=== PATIENT | male | born 1980 | race African-American/Black ===

== ENCOUNTER 2025-08-27 18:55 | Emergency (ER) | payer OTHER, SELFPAY ==
[2025-08-27 19:11] VITALS: BP 140/83; PULSE 80; RESP 20; TEMP 36.5; O2SAT 100
--- NOTE | 2025-08-27 19:31 | ED.EYEPROB ---
HPI - Eye Problem General Chief complaint: Skin/Abscess/Foreign Body Stated complaint: Chemical Burn to Face Time Seen by Provider: 08/27/25 18:57 Source: patient Mode of arrival: ambulatory Limitations: no limitations History of Present Illness HPI Narrative: Patient is a 45-year-old male who presents with left eye irritation and burning. Patient states he was eating red hot red ripplets when he rubbed his eye around 11. Patient got off work at 4:30 a.m. when he arrived home called his boss about the irritation. Patient states there was recently a chemical exposure at work. Patient states he showered but symptoms are still there. Related Data Allergies Allergy/AdvReac Type Severity Reaction Status Date / Time No Known Allergies Allergy Verified 08/27/25 19:40 Review of Systems Review of Systems: All systems reviewed & are unremarkable except as noted in HPI and below Constitutional: Constitutional: Denies body ache(s), Denies fever(s), Denies headache(s), Denies malaise and Denies weakness Eyes: Eyes: Reports blurry vision, Denies eye discharge, Reports irritation, Denies itchy eyes, Denies loss of vision and Denies eye pain ENT: Denies otalgia, Denies headache(s), Denies nasal discharge, Denies sinus pain and Denies sore throat Cardiovascular: Cardiovascular: Denies chest pain, Denies irregular heart rhythm and Denies dyspnea Respiratory: Respiratory: Denies dyspnea Gastrointestinal: Gastrointestinal: Denies abdominal pain, Denies diarrhea, Denies nausea and Denies vomiting Musculoskeletal: Musculoskeletal: Denies back pain, Denies myalgias and Denies arthralgias Integumentary/Breasts: Skin/Breast: Denies pruritus and Denies rash Neurologic: Denies headache(s), Denies loss of vision and Denies weakness Psychiatric: Psychiatric: Reports no additional psychiatric complaints Allergic/Immunologic: Allergic/Immunologic: Reports itchy eyes PMFSH Comments At time of signature, agree with nursing past medical, surgical, social and family history. There is no relevant family history pertinent to the presenting complaint. Exam Const: General: cooperative, healthy appearing, comfortable, no acute distress and well nourished Nutritional Appearance: well nourished Orientation/consciousness: patient oriented x3 Limitations: no limitations HENMT: Head: normal to inspection, normocephalic and atraumatic Ears: external ears normal Face/Nose/Sinus: Normal external nose present, normal facial exam and face symmetric Face and sinus: normal facial exam and face symmetric Mouth: Yes lip normal Eyes: General: appearance normal, both eyes and all related structures Visual Paige: normal visual paige by confrontation Alignment and Position: alignment normal and position normal Periorbital: periorbital findings normal Eyelids: eyelids normal Conjunctivae: conjunctivae normal Sclera: sclerae normal Pupils: Equal, round and reactive pupils present EOM: EOMs intact bilaterally Direct Ophthalmoscopy: no photophobia Other: No hyphema, no foreign body under the lids. Neck: Neck: normal visual inspection, full ROM, no lymphadenopathy and no meningeal signs Chest: Chest palpation & inspection: normal inspection of the chest Resp: Effort & Inspection: normal respiratory effort and able to speak in complete sentences Auscultation: clear to auscultation bilaterally Cardio: Rate: regular rate Rhythm: regular rhythm Heart sounds: S1 normal heart sound present and S2 normal heart sound present GI: Inspection: normal to inspection Skin: General skin exam: normal color and no rashes or lesions noted Neuro: General: patient oriented x3, moves all extremities and no meningeal signs Cranial nerves: Yes Equal, round and reactive pupils present Speech: normal speech Gait exam (Neuro): Normal gait present Extrem: General: normal to inspection, full ROM and no edema Psych: Appearance: grossly normal and well kempt Mental Status: mental status grossly normal Speech and movement: Normal speech and movement present Affect: normal affect Attitude: cooperative Thought process: Normal thought process present Course Course Emergency Course: Patient is aware of diagnosis, understands and agrees to treatment plan. Anticipatory guidance given. Patient agrees to follow-up as directed and is aware of reasons to seek care at the emergency department. Portions of this record may have been created with voice recognition software Level of Care: Express Care Visit Vital Signs Vital signs: Vital Signs Temperature 36.5 C 08/27/25 19:11 Pulse Rate 80 08/27/25 19:11 Respiratory Rate 20 08/27/25 19:11 Blood Pressure 140/83 08/27/25 19:11 Pulse Oximetry 100 08/27/25 19:11 Oxygen Delivery Room Air 08/27/25 19:11 Temperature 36.5 C 08/27/25 19:11 Pulse Rate 80 08/27/25 19:11 Respiratory Rate 20 08/27/25 19:11 Blood Pressure 140/83 08/27/25 19:11 Pulse Oximetry 100 08/27/25 19:11 Oxygen Delivery Room Air 08/27/25 19:11 Reviewed MDM - Eye Problem MDM Narrative Medical decision making narrative: Covered patient face in lubricating jelly. Patient reports immediate relief of symptoms. Discussed washing face with mild soap applying Aquaphor Exam findings show no acute concerns or changes; patient is non-toxic appearing and is in no distress.? Patient is appropriate for outpatient treatment and follow-up Discharge instructions reviewed with patient and family, as well as provided in writing per nursing staff. The instructions also include specific and strict return/GO TO THE ER as well as f/u information. All questions have been answered, and the patient deny any further questions with discharge and discharge plan. Consideration of the following conditions may be warranted for the presenting problem, they are not final diagnoses: Bacterial conjunctivitis, allergic conjunctivitis, viral conjunctivitis, foreign body, blepharitis, chalazion, hordeolum, corneal abrasion, irritant. Discharge Plan Discharge Clinical Impression: Skin irritation Patient Disposition: Home Condition: Stable Instructions: Eyelid Swelling (ED) Additional Instructions: 1) wash erase with mild soap and apply Aquaphor or Vaseline. 2) If you have any worsening of symptoms or any other urgent concerns please go to the ER. 3) Please continue taking your home medications as usual. 4) Please read and follow information included in discharge instructions. Patient Language: Hungarian Follow-up/Referrals: Shelton Espinosa MD [Physician, Family Practice] - 3 Days Referral Note: Establish care Stand Alone Forms: Work/School Release IP Time of Disposition: 19:44
== END 2025-08-27 19:48 | disposition home or self-care (01) ==
PROVIDERS: Emergency Provider Nurse Practitioner Family
DX: R20.8 Other disturbances of skin sensation (principal); E78.00 Pure hypercholesterolemia, unspecified
CPT/HCPCS: 99202; G0463